=== PATIENT | male | born 1950 | race Caucasian/White ===

== ENCOUNTER 2022-01-09 10:01 | Emergency (ER) | payer OTHER, MEDICARE ==
[2022-01-09 10:07] VITALS: BP 145/89; PULSE 104; RESP 20; TEMP 98.5
[2022-01-09] MEDS ORDERED: PENICILLIN V POTASSIUM 250 MG TAB PO STA (10:22)
--- NOTE | 2022-01-09 10:26 | ED ---
ENT HPI - General Chief complaint: Dental/Oral Stated complaint: Facial Swelling Time Seen by Provider: 01/09/22 10:08 Source: patient Mode of arrival: ambulatory Limitations: no limitations - History of Present Illness Initial comments: Patient is a 71-year-old male presenting with chief complaint of dental pain. Patient has known damage to multiple teeth, does not follow with a dentist. About 4 days ago he was eating popcorn and shortly after pain to the right upper side began. Since then there has been increased pain and swelling to the right upper side. Patient is complaining that his cheek has been swelling and is tender to touch. Patient states it is difficult to eat as his gumline is very sensitive. Patient has been taking Excedrin without aspirin for pain relief. Denies fever, chills, nausea, vomiting, headache, dysphasia, voice changes, chest pain, shortness of breath, neck stiffness, vision or hearing changes, abdominal pain, diarrhea. - Related Data Home Medications Medication Instructions Recorded Confirmed Acetaminophen/Caffeine [Excedrin 4.5 tab PO TID PRN 07/07/16 09/15/16 Tension Headache Cplt] carvediloL [Coreg] 6.25 mg PO BID 07/16/16 09/15/16 Previous Rx's Medication Instructions Recorded amLODIPine [Norvasc] 10 mg PO DAILY #30 tab 07/18/16 cloNIDine HCL [Catapres] 0.1 mg PO TID #90 tab 07/18/16 lisinopriL [Zestril] 20 mg PO BID #60 tab 07/18/16 valACYclovir [Valtrex] 1,000 mg PO TID 10 Days tab 07/18/16 Amoxic-Pot Clav 500-125 mg 1 tab PO Q8H 7 Days tab 09/15/16 [Augmentin 500-125 mg] Penicillin V Potassium [Pen Vee K] 500 mg PO QID 10 Days #40 tablet 01/09/22 Allergies Allergy/AdvReac Type Severity Reaction Status Date / Time Sulfa (Sulfonamide AdvReac Confusion Verified 01/09/22 10:07 Antibiotics) Review of Systems ROS Statement: Those systems with pertinent positive or pertinent negative responses have been documented in the HPI. ROS Other: All systems not noted in ROS Statement are negative. 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 History of Any Multi-Drug Resistant Organisms: None Reported Past Surgical History: Tonsillectomy Additional Past Surgical History / Comment(s): UVPPP, bronchoscopy, lasik eye surgery bilaterally for vision Past Anesthesia/Blood Transfusion Reactions: No Reported Reaction Additional Past Anesthesia/Blood Transfusion Reaction / Comment(s): Pt has received blood yrs ago without reaction. Past Psychological History: No Psychological Hx Reported Smoking Status: Former smoker Past Alcohol Use History: Rare Past Drug Use History: Marijuana - Past Family History Father Family Medical History: COPD Additional Family Medical History / Comment(s): Father had an aortic aneurysm with repair in his 70's. He from emphysema at the age of 87yrs. Mother Family Medical History: Coronary Artery Disease (CAD), Myocardial Infarction ([place]) Additional Family Medical History / Comment(s): Mother had a CABG at the age of 52yrs. She of a [place] at the age of 67yrs. General Exam Limitations: no limitations General appearance: alert, in no apparent distress Head exam: Present: atraumatic, normocephalic, normal inspection Eye exam: Present: normal appearance, PERRL, EOMI. Absent: scleral icterus, conjunctival injection, periorbital swelling ENT exam: Present: mucous membranes moist Expanded Mouth exam: Present: tongue normal. Absent: drooling, trismus, muffled voice Teeth exam: Present: dental caries (multiple), fractured tooth # (multiple), dental tenderness # (Across multiple teeth but most notably tooth #6) Throat exam: normal inspection. negative: tonsillomegaly Neck exam: Present: normal inspection Neurological exam: Present: alert, oriented X3, CN II-XII intact Psychiatric exam: Present: normal affect, normal mood Skin exam: Present: warm, dry, intact, normal color. Absent: rash Course Vital Signs 01/09/22 10:05 Temperature 98.5 F Pulse Rate 104 H Respiratory 20 Rate Blood Pressure 145/89 O2 Sat by Pulse 97 Oximetry Procedures - Incision & Drainage Consent Obtained: verbal consent Site: oral Size (cm): 1 Sterile Field Used?: No Needle Aspiration Performed?: Yes I&D Drainage Obtained: Pus, Blood Culture Obtained?: No Patient Tolerated Procedure: well Medical Decision Making - Medical Decision Making Patient is a 71-year-old male presenting with chief complaint of dental pain. Patient states that the pain began 4 days ago after eating popcorn. Patient has no tooth damage to multiple sites. He does not follow with a dentist. He compl ains of increased pain and swelling most notably along the right upper side. On examination there is visible swelling of the cheek over the right upper mandible. There is no notable tooth and gum sensitivity on palpation, abscess is seen on inspection. 18-gauge needle was inserted into the abscess and pus and blood were drained from the site. Patient stated that he could feel some relief pressure. Patient was started on penicillin VK 500 mg 4 times a day for 10 days. When offered pain control in the ER the patient declined. Patient was given the information for my [facility] for follow-up. Follow-up with dentist in 1-2 days. Follow-up with PCP in one to 2 days. Take medication as prescribed. Take Motrin and Tylenol for pain relief as needed. Report back to ER with any worsening symptoms or new onset alarming symptoms. I counseled the patient on return parameters and alarm symptoms. Answered all questions. Patient conveyed verbal understanding and agreed to the plan. I discussed this case with my attending Dr. Fierro. Disposition Clinical Impression: Dental abscess Disposition: HOME SELF-CARE Condition: Good Instructions (If sedation given, give patient instructions): Dental Abscess (ED) Additional Instructions: Follow up with dentist in one to 2 days. My [facility] located at [address] [place] [address]. Follow-up with PCP in one to 2 days. Take medication as prescribed. May take Motrin and Tylenol as needed for pain relief. Hot compress to the face may help with symptoms. Report back to ER if any worsening symptoms or new onset alarming symptoms, including but not limited to fever, chills, nausea, vomiting, headache, vision changes, neck stiffness. Prescriptions: Penicillin V Potassium [Pen Vee K] 500 mg PO QID 10 Days #40 tablet Is patient prescribed a controlled substance at d/c from ED?: No Referrals: None,Stated [Primary Care Provider] - 1-2 days Time of Disposition: 10:26
== END 2022-01-09 11:02 | disposition home or self-care (01) ==
LOC: EC 10:01
DX: K04.7 Periapical abscess without sinus (principal); I10 Essential (primary) hypertension; Z87.891 Personal history of nicotine dependence; Z88.2 Allergy status to sulfonamides; Z79.899 Other long term (current) drug therapy
CPT/HCPCS: 41800; 99283

== ENCOUNTER 2025-03-29 20:07 | Emergency (ER) | payer MEDICARE, OTHER ==
--- NOTE | 2025-03-29 21:04 | ED ---
General Adult HPI - General Source: patient, EMS Mode of arrival: EMS Limitations: no limitations <Ad Marley - Last Filed: 03/29/25 21:03> <Clary Haley - Last Filed: 03/30/25 06:29> - General Chief complaint: GI Bleed Stated complaint: diarrhea Time Seen by Provider: 03/29/25 21:03 - History of Present Illness Initial comments: 74-year-old male presenting with chief complaint of weakness. Patient is also complaining of black stools. He reports that years ago he had a GI bleed due to taking too many NSAIDs and required a blood transfusion. He reports that he recently started taking NSAIDs again. He has had blood present in his stool and vomit for the last 24 hours. (Ad Marley) 24-year-old on the past medical history of hypertension presenting today for upper GI bleed. Patient states that he has been having epigastric burning abdominal pain for the last 3 days. This morning he began having episodes of black coffee-ground emesis. He estimates he vomited up "gallons" this morning. He states upon walking to the bathroom he felt very lightheaded like he is going to pass out so he laid down on the floor. Since then he has had generalized weakness. He also has had multiple dark tarry stools. States he is now "cleaned out" and has not had any further stools. States that this happened about 20 to 30 years ago when he was using Excedrin heavily. He states he typically takes Excedrin for chronic pain and headaches without aspirin however they were out of it at the pharmacy about 1 month ago so has been taking Excedrin with aspirin up to every 6 hours a day for the last month. Patient is not on blood thinners. He denies alcohol use. Currently endorses burning epigastric abdominal pain that is mild in nature. Endorses associated generalized weakness, lightheadedness. Denies any chest pain or shortness of breath, hematuria, hemoptysis, fevers or chills. (Clary Haley) - Related Data Home Medications Medication Instructions Recorded Confirmed Acetaminophen/Caffeine [Excedrin 4.5 tab PO TID PRN 07/07/16 09/15/16 Tension Headache Cplt] carvediloL [Coreg] 6.25 mg PO BID 07/16/16 09/15/16 Previous Rx's Medication Instructions Recorded amLODIPine [Norvasc] 10 mg PO DAILY #30 tab 07/18/16 cloNIDine HCL [Catapres] 0.1 mg PO TID #90 tab 07/18/16 lisinopriL [Zestril] 20 mg PO BID #60 tab 07/18/16 valACYclovir HCL [Valtrex] 1,000 mg PO TID 10 Days tab 07/18/16 Amoxic-Pot Clav 500-125 mg 1 tab PO Q8H 7 Days tab 09/15/16 [Augmentin 500-125 mg] Penicillin V Potassium [Pen Vee K] 500 mg PO QID 10 Days #40 tablet 01/09/22 Allergies Allergy/AdvReac Type Severity Reaction Status Date / Time Sulfa (Sulfonamide AdvReac Confusion Verified 03/29/25 20:13 Antibiotics) Review of Systems ROS Other: All systems not noted in ROS Statement are negative. <Ad Marley - Last Filed: 03/29/25 21:03> ROS Other: All systems not noted in ROS Statement are negative. <Clary Haley - Last Filed: 03/30/25 06:29> ROS Statement: Those systems with pertinent positive or pertinent negative responses have been documented in the HPI. 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 History of Any Multi-Drug Resistant Organisms: None Reported Past Surgical History: Tonsillectomy Additional Past Surgical History / Comment(s): UVPPP, bronchoscopy, lasik eye surgery bilaterally for vision Past Anesthesia/Blood Transfusion Reactions: No Reported Reaction Additional Past Anesthesia/Blood Transfusion Reaction / Comment(s): Pt has received blood yrs ago without reaction. Past Psychological History: No Psychological Hx Reported Smoking Status: Former smoker Past Alcohol Use History: Rare Past Drug Use History: Marijuana - Past Family History Father Family Medical History: COPD Additional Family Medical History / Comment(s): Father had an aortic aneurysm with repair in his 70's. He from emphysema at the age of 87yrs. Mother Family Medical History: Coronary Artery Disease (CAD), Myocardial Infarction ([place]) Additional Family Medical History / Comment(s): Mother had a CABG at the age of 52yrs. She of a [place] at the age of 67yrs. <AmrleyAd - Last Filed: 03/29/25 21:03> General Exam Limitations: no limitations <Ad Marley - Last Filed: 03/29/25 21:03> <Clary Haley - Last Filed: 03/30/25 06:29> - General Exam Comments Initial Comments: Visual Physical Exam Vital signs reviewed General: Well-appearing, nontoxic, no acute distress. Head: Normocephalic, atraumatic Eyes: PERRLA, EOMI ENT: Airway patent Chest: Nonlabored breathing Skin: No visual rash, normal skin tone Neuro: Alert and oriented 3 Musculoskeletal: No gross abnormalities (Ad Marley) PE: Exam is limited as patient was evaluated in the hallway CONSTITUTIONAL: [no apparent distress, chronically ill-appearing nontoxic] SKIN: [warm, dry, no jaundice, hives or petechiae] EYES:[ pupils are equally round, extraocular movements intact without nystagmus, pale conjunctiva, non-icteric sclera] HENT: [normocephalic, atraumatic, moist mucus membranes, oropharynx clear without exudates] NECK: , [Full range of motion, normal appearance] PULMONARY: [clear to auscultation without wheezes, rhonchi, or rales, normal excursion, no accessory muscle use and no stridor] CARDIOVASCULAR:[Tachycardia, regular rate, rhythm, normal S1 and S2. No appreciated murmurs, rubs or gallops. Strong radial pulses with intact distal perfusion. No lower extremity edema] GASTROINTESTINAL: [soft, active bowel sounds throughout, non-tender, non- distended, no palpable masses, no rebound or guarding. No hepatosplenomegaly] GENITOURINARY: MUSCULOSKELETAL: [Extremities have no gross deformity, no edema, redness, or swelling. No calf swelling ] NEUROLOGIC: [_a/o x 3, GCS 15, normal mentation and speech. Moves all extremities x 4 without motor or sensory deficit] PSYCHIATRIC:[ _normal mood and affect, thought process is clear and linear] (Clary Haley) Course Vital Signs 03/29/25 03/29/25 03/29/25 20:09 22:07 23:32 Temperature 98.0 F 98.1 F Pulse Rate 109 H 99 110 H Respiratory 20 20 20 Rate Blood Pressure 91/58 134/81 129/71 O2 Sat by Pulse 100 97 97 Oximetry 03/30/25 00:06 Temperature 98.1 F Pulse Rate 108 H Respiratory 18 Rate Blood Pressure 122/71 O2 Sat by Pulse 97 Oximetry EKG Findings - EKG Comments: EKG Findings:: Sinus tachycardia, rate 111 bpm, intervals within acceptable limits, left axis deviation, no significant ST elevations or depressions, no arrhythmia <Clary Haley - Last Filed: 03/30/25 06:29> Medical Decision Making <Ad Marley - Last Filed: 03/29/25 21:03> - Lab Data Result diagrams: 03/29/25 22:33 03/29/25 22:33 <Clary Haley - Last Filed: 03/30/25 06:29> - Medical Decision Making I performed the quick note portion of this visit, electronically signed Ad Marley PA-C (Ad Marley) Was pt. sent in by a medical professional or institution ([facility]y, [facility] BUFFER, urgent care, hospital, or fpc...) When possible be specific @ -[No] Did you speak to anyone other than the patient for history (EMS, parent, family, police, friend...)? What history was obtained from this source @ -[No] Did you review nursing and triage notes (agree or disagree)? Why? @ -[I reviewed nursing and triage notes] Were old charts reviewed (outside hosp., previous admission, EMS record, old EKG, old radiological studies, urgent care reports/EKG's, fpc records)? Report findings @ -[Medical records reviewed] Differential Diagnosis (chest pain, altered mental status, abdominal pain women, abdominal pain men, vaginal bleeding, weakness, fever, dyspnea, syncope, headache, dizziness, GI bleed, back pain, seizure, CVA, palpatations, mental health, musculoskeletal)? @Differential GI Bleed: Esophageal varices, aortoenteric fistula, Juanita-Keita, gastritis, peptic ulcer disease, diverticulosis, inflammatory bowel disease, hemorrhoids, fissure, colitis, malignancy, Meckel's diverticulum, this is not meant to be an all- inclusive list. EKG interpreted by me (3pts min.). @ -[As above] X-rays interpreted by me (1pt min.). @ -[None done] CT interpreted by me (1pt min.). @ -[None done] U/S interpreted by me (1pt. min.). @ -[None done] What testing was considered but not performed or refused? (CT, X-rays, U/S, labs)? Why? @CT GI bleed study was considered however patient has not had any active episodes of emesis or melena here in the ER, I do not feel at this point this would add anything to patient's workup What meds were considered but not given or refused? Why? @ -[None] Did you discuss the management of the patient with other professionals (professionals i.e. , PA, ENAMEL BUFFER, lab, RT, psych nurse, social studies teacher, heel boom operator, teacher, ship's electronic warfare officer, caser shoe parts)? Give summary @ -[No] Was smoking cessation discussed for >3mins.? @ -[No] Was critical care preformed (if so, how long)? @ -[No] Were there social determinants of health that impacted care today? How? (Homelessness, low income, unemployed, alcoholism, drug addiction, transportation, low edu. Level, literacy, decrease access to med. care, [facility], rehab)? @ -[No] Was there de-escalation of care discussed even if they declined (Discuss DNR or withdrawal of care, Hospice)? @ -[No] What co-morbidities impacted this encounter? (DM, HTN, Smoking, COPD, CAD, Cancer, CVA, ARF, Chemo, Hep., AIDS, mental health diagnosis, sleep apnea, morbid obesity)? Hypertension Was patient admitted / discharged? Hospital course, mention meds given and route, prescriptions, significant lab abnormalities, going to OR and other pertinent info. @Jocelyn Mcgee transferred pleasant 74 gentleman presenting today for multiple episodes of coffee-ground emesis and dark tarry stools since this morning. Patient initially seen and evaluated in the waiting room due to ED overflow capacity. I obtained patient's ration to discuss his care in the waiting room. On my assessment patient is resting comfortably he is chronically ill-appearing nontoxic. Somewhat dry mucous membranes. Pale conjunctiva, tachycardia. Heart rate 109, BP 91/58. Patient's medications were delayed due to extended period time in the waiting room. I did immediately request patient be roomed as soon as possible upon evaluating the patient. 80 mg IV Protonix 1, 1 L IV fluids, comprehensive labs including type and cross, anticipate him requiring a blood transfusion as well as transfer to facility with GI. Hemoglobin 8.1, previously 16 was 15 that was our most recent hemoglobin from this patient. Platelets 363, white blood cell count 19.43, BUN 59, creatinine 1.17 GFR 61, lactic 3.7, magnesium 3.0, stool occult blood positive. Patient has not had any further episodes of hematemesis or melena while here in the ER. Blood pressure is stable. Given hemoglobin is greater than 7 at this point hold off on transfusion. Plan for transfer to [facility] for gastroenterology consultation. I discussed with the patient and family to which they were agreeable. Patient was accepted for transfer by Dr. Lemus at [facility]. Undiagnosed new problem with uncertain prognosis? @ -[No] Drug Therapy requiring intensive monitoring for toxicity (Heparin, Nitro, Insulin, Cardizem)? @ -[No] Were any procedures done? @ -[No] Diagnosis/symptom? @Upper GI bleed, symptomatic anemia Acute, or Chronic, or Acute on Chronic? @Acute Uncomplicated (without systemic symptoms) or Complicated (systemic symptoms)? @ -Complicated Side effects of treatment? @ -[No] Exacerbation, Progression, or Severe Exacerbation? @ -[No] Poses a threat to life or bodily function? How? (Chest pain, [place], [place], pneumonia, PE, COPD, DKA, ARF, appy, cholecystitis, CVA, Diverticulitis, Homicidal, Suicidal, threat to staff... and all critical care pts) @Yes (Clary Haley) - Lab Data Lab Results 03/29/25 03/29/25 03/29/25 Range/Units 22:28 22:33 22:33 WBC 19.43 H (4.50-10.00) 10*3/uL RBC 2.41 L (4.40-5.60) 10*6/uL Hgb 8.1 L (13.0-17.0) g/dL Hct 24.1 L (39.6-50.0) % MCV 100.0 H (80.0-97.0) fL MCH 33.6 H (27.0-32.0) pg MCHC 33.6 (32.0-37.0) g/dL Plt Count 363 (140-440) 10*3/uL MPV 8.8 L (9.5-12.2) fL Immature Gran % (Auto) 0.9 % Neutrophils % 73.0 % Lymphocytes % 19.5 % Monocytes % 6.2 % Eosinophils % 0.0 % Basophils % 0.4 % Immature Gran # 0.18 H (0.00-0.04) 10*3/uL Neutrophils # 14.18 H (1.80-7.70) 10*3/uL Lymphocytes # 3.79 (0.90-5.00) 10*3/uL Monocytes # 1.20 H (0.20-1.00) 10*3/uL Eosinophils # 0.00 L (0.04-0.35) 10*3/uL Basophils # 0.08 (0.00-0.10) 10*3/uL Sodium 136 L (137-145) mmol/L Potassium 5.1 (3.5-5.1) mmol/L Chloride 104 (98-107) mmol/L Carbon Dioxide 17 L (22-30) mmol/L Anion Gap 15 mmol/L BUN 59 H (9-20) mg/dL Creatinine 1.17 (0.66-1.25) mg/dL Est GFR (CKD-EPI)AfAm 71 (>60 ml/min/1.73 sqM) Est GFR (CKD-EPI)NonAf 61 (>60 ml/min/1.73 sqM) Glucose 150 H (74-99) mg/dL Lactic Ac Sepsis Rflx Plasma Lactic Acid Shashi (0.7-2.0) mmol/L Calcium 9.5 (8.4-10.2) mg/dL Magnesium 3.0 H (1.6-2.3) mg/dL Total Bilirubin 0.3 (0.2-1.3) mg/dL AST 30 (17-59) U/L ALT 30 (4-49) U/L Alkaline Phosphatase 51 (38-126) U/L Total Protein 8.4 H (6.3-8.2) g/dL Albumin 4.5 (3.5-5.0) g/dL Stool Occult Blood (Negative) Blood Type Blood Type Confirm A Positive Blood Type Recheck Bld Type Recheck Status Antibody Screen Spec Expiration Date 03/29/25 03/29/25 03/29/25 Range/Units 22:33 22:33 23:12 WBC (4.50-10.00) 10*3/uL RBC (4.40-5.60) 10*6/uL Hgb (13.0-17.0) g/dL Hct (39.6-50.0) % MCV (80.0-97.0) fL MCH (27.0-32.0) pg MCHC (32.0-37.0) g/dL Plt Count (140-440) 10*3/uL MPV (9.5-12.2) fL Immature Gran % (Auto) % Neutrophils % % Lymphocytes % % Monocytes % % Eosinophils % % Basophils % % Immature Gran # (0.00-0.04) 10*3/uL Neutrophils # (1.80-7.70) 10*3/uL Lymphocytes # (0.90-5.00) 10*3/uL Monocytes # (0.20-1.00) 10*3/uL Eosinophils # (0.04-0.35) 10*3/uL Basophils # (0.00-0.10) 10*3/uL Sodium (137-145) mmol/L Potassium (3.5-5.1) mmol/L Chloride (98-107) mmol/L Carbon Dioxide (22-30) mmol/L Anion Gap mmol/L BUN (9-20) mg/dL Creatinine (0.66-1.25) mg/dL Est GFR (CKD-EPI)AfAm (>60 ml/min/1.73 sqM) Est GFR (CKD-EPI)NonAf (>60 ml/min/1.73 sqM) Glucose (74-99) mg/dL Lactic Ac Sepsis Rflx Y Plasma Lactic Acid Shashi 3.7 H* (0.7-2.0) mmol/L Calcium (8.4-10.2) mg/dL Magnesium (1.6-2.3) mg/dL Total Bilirubin (0.2-1.3) mg/dL AST (17-59) U/L ALT (4-49) U/L Alkaline Phosphatase (38-126) U/L Total Protein (6.3-8.2) g/dL Albumin (3.5-5.0) g/dL Stool Occult Blood (Negative) Blood Type A Positive Blood Type Confirm Blood Type Recheck No Previous Record Bld Type Recheck Status CABO Indicated Antibody Screen NEGATIVE Spec Expiration Date 04/01/2025 - 233203/29/25 Range/Units 23:13 WBC (4.50-10.00) 10*3/uL RBC (4.40-5.60) 10*6/uL Hgb (13.0-17.0) g/dL Hct (39.6-50.0) % MCV (80.0-97.0) fL MCH (27.0-32.0) pg MCHC (32.0-37.0) g/dL Plt Count (140-440) 10*3/uL MPV (9.5-12.2) fL Immature Gran % (Auto) % Neutrophils % % Lymphocytes % % Monocytes % % Eosinophils % % Basophils % % Immature Gran # (0.00-0.04) 10*3/uL Neutrophils # (1.80-7.70) 10*3/uL Lymphocytes # (0.90-5.00) 10*3/uL Monocytes # (0.20-1.00) 10*3/uL Eosinophils # (0.04-0.35) 10*3/uL Basophils # (0.00-0.10) 10*3/uL Sodium (137-145) mmol/L Potassium (3.5-5.1) mmol/L Chloride (98-107) mmol/L Carbon Dioxide (22-30) mmol/L Anion Gap mmol/L BUN (9-20) mg/dL Creatinine (0.66-1.25) mg/dL Est GFR (CKD-EPI)AfAm (>60 ml/min/1.73 sqM) Est GFR (CKD-EPI)NonAf (>60 ml/min/1.73 sqM) Glucose (74-99) mg/dL Lactic Ac Sepsis Rflx Plasma Lactic Acid Shashi (0.7-2.0) mmol/L Calcium (8.4-10.2) mg/dL Magnesium (1.6-2.3) mg/dL Total Bilirubin (0.2-1.3) mg/dL AST (17-59) U/L ALT (4-49) U/L Alkaline Phosphatase (38-126) U/L Total Protein (6.3-8.2) g/dL Albumin (3.5-5.0) g/dL Stool Occult Blood Positive (Negative) Blood Type Blood Type Confirm Blood Type Recheck Bld Type Recheck Status Antibody Screen Spec Expiration Date Disposition <Ad Marley - Last Filed: 03/29/25 21:03> - Out of Hospital Transfer - Req. Specs Out of Hospital Transfer - Requested Specifics: Other Emergency Center <Clary Haley - Last Filed: 03/30/25 06:29> Clinical Impression: Upper GI bleed, Symptomatic anemia Disposition: OTHER INSTITUTION NOT DEFINED Condition: Stable Referrals: [facility] [REFERRING] - 1-2 days
[2025-03-29 22:49] LABS: Basophils # (A) 0.08 10*3/uL (0.00-0.10); Basophils % (A) 0.4 %; HCT 24.1 % (39.6-50.0); HGB 8.1 g/dL (13.0-17.0); Lymphocytes # (A) 3.79 10*3/uL (0.90-5.00); Lymphocytes % (A) 19.5 %; MCH 33.6 pg (27.0-32.0); MCHC 33.6 g/dL (32.0-37.0); Mean Platelet Volume 8.8 fL (9.5-12.2); Monocytes % (A) 6.2 %; Neutrophils # (A) 14.18 10*3/uL (1.80-7.70); Platelet Count 363 10*3/uL (140-440); RBC 2.41 10*6/uL (4.40-5.60); RDW 12.9 % (11.5-14.5); WBC 19.43 10*3/uL (4.50-10.00)
[2025-03-29] MEDS: SODIUM CHLORIDE 0.9% 1,000 ML IV ONE (23:00)
[2025-03-29] MEDS: PANTOPRAZOLE 40 MG/10 ML VIAL IVP ONE (23:02)
[2025-03-29 23:03] LABS: ALT 30 U/L (4-49); AST 30 U/L (17-59); African American GFR (CKD) 71 (>60 ml/min/1.73 sqM); Albumin 4.5 g/dL (3.5-5.0); Alkaline Phosphatase 51 U/L (38-126); Anion Gap 15 mmol/L; Blood Urea Nitrogen 59 mg/dL (9-20); Calcium 9.5 mg/dL (8.4-10.2); Carbon Dioxide 17 mmol/L (22-30); Chloride 104 mmol/L (98-107); Glucose 150 mg/dL (74-99); Non-African American GFR(CKD) 61 (>60 ml/min/1.73 sqM); Potassium 5.1 mmol/L (3.5-5.1); Sodium 136 mmol/L (137-145); Total Bilirubin 0.3 mg/dL (0.2-1.3); Total Protein 8.4 g/dL (6.3-8.2)
[2025-03-29 23:33] VITALS: TEMP 98.1
[2025-03-29] MEDS: ONDANSETRON 4 MG/2 ML VIAL IVP STA (23:46)
[2025-03-30 00:07] VITALS: BP 122/71; PULSE 108; RESP 18
== END 2025-03-30 00:08 | disposition other institution (70) ==
LOC: EC 20:07
DX: K92.2 Gastrointestinal hemorrhage, unspecified (principal); D64.9 Anemia, unspecified; I10 Essential (primary) hypertension; Z88.2 Allergy status to sulfonamides; Z87.891 Personal history of nicotine dependence
CPT/HCPCS: 36415; 93005; 86900; 86901; 80053; 83605; 83735; 85025; 86850; 82272; 99285; 96374; 96375; 96361; J2405; J2470